=== PATIENT | female | born 1980 | race Caucasian/White ===

== ENCOUNTER 2017-10-16 20:54 | Emergency (ER) | payer OTHER ==
--- NOTE | 2017-10-16 21:02 | EDPHY ---
H & P Time Seen by Provider: 10/16/17 21:02 HPI/ROS: HPI CHIEF COMPLAINT: Left lateral foot pain HISTORY OF PRESENT ILLNESS: Very pleasant 37-year-old female, presents emergency room with left lateral foot pain. She was jumping on trampoline she did a back flip and she twisted on her left foot. She now has pain to the 5th metatarsal. She is able to bear weight. She is neurovascular intact there is mild swelling present. She has been icing it. She has not take any pain medicine. Denies upper leg pain or knee pain. The pain is located left lateral foot over the 5th metatarsal currently 4/10 pain. Past Medical History: No significant medical Past Surgical History: No significant surgical history Social History: Lives locally denies drugs alcohol tobacco. Family History: Noncontributory ROS REVIEW OF SYSTEMS: A comprehensive 10 point review of systems is otherwise negative aside from elements mentioned in the history of present illness. Exam Constitutional appears well nontoxic no acute distress triage nursing summary reviewed, vital signs reviewed, awake/alert. Eyes normal conjunctivae and sclera, EOMI, PERRLA. HENT normal inspection, atraumatic, moist mucus membranes, no epistaxis, neck supple/ no meningismus, no raccoon eyes. Respiratory clear to auscultation bilaterally, normal breath sounds, no respiratory distress, no wheezing. Cardiovascular rate normal, regular rhythm, no murmur, no edema, distal pulses normal. Gastrointestinal soft, non-tender, no rebound, no guarding, normal bowel sounds, no distension, no pulsatile mass. Genitourinary no CVA tenderness. Musculoskeletal left lower extremity: Mild swelling and tenderness noted over the left 5th metatarsal. Her foot is neurovascular intact. Good cap refill. Good distal pulse. No signs of compartment syndrome. Full range of motion no ankle pain no tib-fib pain no knee pain. no midline vertebral tenderness, full range of motion, no calf swelling, no tenderness of extremities, no meningismus , good pulses, neurovascularly intact. Skin pink, warm, & dry, no rash, skin atraumatic. Neurologic awake, alert and oriented x 3, AAOx3, moves all 4 extremities equally, motor intact, sensory intact, CN II-XII intact, normal cerebellar, normal vision, normal speech. Psychiatric normal mood/affect. Heme/Lymph/Immune no lymphadenopathy. Differential Diagnosis: Includes but is not limited to in a particular foot sprain, foot contusion, metatarsal fracture, stress fracture, ligamentous injury , tendon injury, Medical Decision Making: Plan for this patient ibuprofen 800 mg, ice pack, x- ray left foot and re-evaluate. Re-evaluation: X-ray reviewed of the foot this shows a fracture of the 5th metatarsal. Patient be splinted. Crutches. Understands follow-up with a foot doctor. Referral given. Patient has been placed in a posterior short leg splint with a stirrup for acute stabilization of this foot fracture, this is a closed fracture. Her splint is appropriately applied. She is neurovascularly intact. No signs of compartment syndrome. She understands follow-up with Podiatry. Source: Patient Allergies/Adverse Reactions: No Known Allergies Allergy (Unverified 10/16/17 21:10) Home Medications: Medication Instructions Recorded Hydrocodone/APAP 5/325 [King 1 - 2 tab PO Q4H PRN #10 tab 10/16/17 5/325] Ibuprofen [Motrin (*)] 800 mg PO Q6-8PRN #10 tab 10/16/17 Departure - Departure Disposition: Home, Routine, Self-Care Clinical Impression: Foot contusion Qualifiers: Encounter type: initial encounter Laterality: left Qualified Code(s): S90.32XA - Contusion of left foot, initial encounter Metatarsal fracture Qualifiers: Encounter type: initial encounter Metatarsal bone: fifth Fracture type: closed Fracture alignment: nondisplaced Laterality: left Qualified Code(s): S92.355A - Nondisplaced fracture of fifth metatarsal bone, left foot, initial encounter for closed fracture Condition: Good Instructions: Foot Contusion (ED), Foot Sprain (ED), Foot Fracture in Adults ( ED) Additional Instructions: 1. Elevate your foot. 2. Ice her foot. 3. Anti-inflammatory pain medication 4. Follow up with the foot doctor. call for Appointment. 5. Crutches 6.Splint. Referrals: NONE *PRIMARY CARE P,. [Primary Care Provider] - As per Instructions Esperanza Claire DPM [Doctor of Podiatric Medicine] - As per Instructions Prescriptions: Hydrocodone/APAP 5/325 [King 5/325] 1 - 2 tab PO Q4H PRN #10 tab PRN Reason: Pain, Moderate Ibuprofen [Motrin (*)] 800 mg PO Q6-8PRN #10 tab
[2017-10-16] MEDS ORDERED: IBUPROFEN 800 MG TAB PO ONE (21:06)
[2017-10-16 21:13] VITALS: RESP 18; TEMP 98.1; O2SAT 96
[2017-10-16 21:58] VITALS: BP 113/73; PULSE 71
[2017-10-16] MEDS ORDERED: HYDROCOD/APAP 5/325 PREPACK#6 BTL TAKEHOME ONE (22:05)
== END 2017-10-16 22:13 | disposition home or self-care (01) ==
LOC: CED 20:54
DX: S92.355A Nondisplaced fracture of fifth metatarsal bone, left foot, initial encounter for closed fracture (principal); S90.32XA Contusion of left foot, initial encounter; X58.XXXA Exposure to other specified factors, initial encounter; Y99.8 Other external cause status; Y93.44 Activity, trampolining
CPT/HCPCS: 73630-PO

== ENCOUNTER → 2018-08-27 | Outpatient (CLI) | payer BC | LOC: BMCIMAGING 09:43 | PROVIDERS: ATTEND Naturopath | DX: N63.10 Unspecified lump in the right breast, unspecified quadrant (principal) ==